=== PATIENT | female | born 1995 | race Caucasian/White ===

== ENCOUNTER 2017-05-11 22:12 | Emergency (ER) | payer MEDICAID, OTHER ==
[~2017-05-11] VITALS: Ht 157.5 cm; Wt 83.9 kg
[~2017-05-11 22:12] MED LIST: PREN-385 PO
[2017-05-11 22:20] VITALS: BP 128/74
--- NOTE | 2017-05-12 00:02 | NUR ---
PATIENT LEFT WITHOUT BEING SEEN BY DR. SAUNDERS. NO FURTHER CARE PROVIDED FOR PATIENT.
== END 2017-05-12 00:02 | disposition left against medical advice (07) ==
LOC: MED 22:12
DX: O46.91 Antepartum hemorrhage, unspecified, first trimester (principal); Z53.21 Procedure and treatment not carried out due to patient leaving prior to being seen by health care provider